=== PATIENT | male | born 1980 | race Caucasian/White ===

== ENCOUNTER 2017-12-24 10:14 | Emergency (ER) | payer MEDICAID ==
[2017-12-24 10:27] VITALS: BMI 27.2
[2017-12-24 10:33] VITALS: RESP 18; TEMP 98.6
--- NOTE | 2017-12-24 11:07 | ED PDOC ---
Arrival/HPI - General Chief Complaint: Headache Time Seen by Provider: 12/24/17 10:43 Historian: Patient EM Caveat: Unstable Vital Signs - History of Present Illness Narrative History of Present Illness (Text): 12/24/17 11:02 Pt is a 37 year old male who presents to the ED complaining of a severe headache for the past 1 year. Pt describes the pain as starting at the top of his head and referring down the neck to both shoulders, down spine to the hips and then knees. States he has insomnia for which he takes Tylenol pm but does not help. Reports having a lot of stress, , job, etc. Pt points out that hes had a small lump on the top of his scalp that has been growing slowly over the last year. Denies sob, cp, fevers, chills, change in vision, eye pain, smell or hearing or any other complaint at this time. Pt has neurology appointment January 08. 12/24/17 11:08 Time/Duration: > month (over 1 yr) Symptom Course: Unchanged Quality: Aching, Pressure Severity Level: Moderate Activities at Onset: Rest, Sleeping Context: Home Past Medical History - Provider Review Nursing Documentation Reviewed: Yes - Travel History Have you recently traveled outside [place] w/in the past 3 mons?: No - Infectious Disease Hx of Infectious Diseases: None - Tetanus Immunization Tetanus Immunization: Unknown - Past Medical History Past Medical History: No Previous - Psychiatric Hx Psychophysiologic Disorder: No Hx Substance Use: No (pt denies) - Past Surgical History Past Surgical History: No Previous - Anesthesia Hx Anesthesia: No Hx Anesthesia Reactions: No Hx Malignant Hyperthermia: No - Suicidal Assessment Feels Threatened In Home Enviroment: No Family/Social History - Physician Review Nursing Documentation Reviewed: Yes Family/Social History: Unknown Family HX Smoking Status: Never Smoked Hx Alcohol Use: Yes Hx Substance Use: No (pt denies) Hx Substance Use Treatment: No Allergies/Home Meds Allergies/Adverse Reactions: Allergies Penicillins Allergy (Verified 05/31/16 10:34) RASH Review of Systems - Review of Systems Constitutional: Fatigue Eyes: Normal ENT: Normal Respiratory: Normal Cardiovascular: Normal Gastrointestinal: Normal Genitourinary Male: Normal Musculoskeletal: Normal Skin: Normal Neurological: Normal Endocrine: Normal Hemo/Lymphatic: Normal Psychiatric: Normal Physical Exam Vital Signs Reviewed: Yes Vital Signs Temp Pulse Resp BP Pulse Ox 12/24/17 13:32 81 18 139/76 97 12/24/17 10:27 98.6 F 100 H 18 126/73 99 Temperature: Afebrile Blood Pressure: Normal Pulse: Tachycardic Respiratory Rate: Normal Appearance: Positive for: Well-Appearing, Non-Toxic, Comfortable Pain Distress: Severe Mental Status: Positive for: Alert and Oriented X 3 - Systems Exam Head: Present: Atraumatic, Normocephalic, Tenderness (raised lesion on vertex, ) Pupils: Present: PERRL Extroacular Muscles: Present: EOMI Conjunctiva: Present: Normal Mouth: Present: Moist Mucous Membranes Neck: Present: Normal Range of Motion Respiratory/Chest: Present: Clear to Auscultation, Good Air Exchange. No: Respiratory Distress, Accessory Muscle Use Cardiovascular: Present: Regular Rate and Rhythm, Normal S1, S2. No: Murmurs Abdomen: Present: Normal Bowel Sounds. No: Tenderness, Distention, Peritoneal Signs Back: Present: Normal Inspection Upper Extremity: Present: Normal Inspection. No: Cyanosis, Edema Lower Extremity: Present: Normal Inspection. No: Edema Neurological: Present: GCS=15, CN II-XII Intact, Speech Normal Skin: Present: Warm, Dry, Normal Color. No: Rashes Psychiatric: Present: Alert, Oriented x 3, Normal Insight, Normal Concentration Medical Decision Making ED Course and Treatment: 12/24/17 11:07 Impression Pt is a 37 year old male who presents to the ED complaining of a severe headache for the past 1 year. On exam, small raised lesion vertex of scalp, point tenderness, cervical, thoracic and lumbar paraspinal pain, Pos Spurlings, active TrPs with referral pattern Working Dx: Myofascial pain syndrome Plan Head CT w/o contrast assess and dispo 12/24/17 12:[address] unremarkable Toradol given for pain discussed findings with pt and recommended f/u with neurologist or apprentice painter brush and PT Dispo home on naprosyn and cyclobenzaprine 12/24/17 13:03 - RAD Interpretation Narrative RAD Interpretations (Text): 12/24/17 12:31 PROCEDURE: CT HEAD WITHOUT CONTRAST. HISTORY: Headache COMPARISON: 05/31/2016. TECHNIQUE: Axial computed tomography images were obtained through the head/brain without intravenous contrast. Radiation dose: Total exam DLP = 863.45 mGy-cm. This CT exam was performed using one or more of the following dose reduction techniques: Automated exposure control, adjustment of the mA and/or kV according to patient size, and/or use of iterative reconstruction technique. FINDINGS: HEMORRHAGE: No intracranial hemorrhage. BRAIN: Francis-white matter differentiation is preserved. There is no mass, mass effect or abnormal extra-axial fluid collection. There is no territorial infarction. VENTRICLES: The ventricles are normal in size, shape and configuration. CALVARIUM: The skull base and calvarium are normal. PARANASAL SINUSES: Predominantly clear. MASTOID AIR CELLS: Predominantly clear. OTHER FINDINGS: None. IMPRESSION: No acute intracranial abnormality. Radiology Orders: 12/24/17 10:53 HEAD W/O CONTRAST [CT] Stat Slope Hoist Operator: Radiologist - Medication Orders Current Medication Orders: Discontinued Medications Ketorolac Tromethamine (Toradol) 30 mg IM STAT STA Stop: 12/24/17 12:32 Last Admin: 12/24/17 12:59 Dose: 30 mg MAR Pain Assessment Document 12/24/17 12:59 HI (Rec: 12/24/17 13:00 CT [id number]) Pain Reassessment Is this a pain reassessment? No Sleep Is patient sleeping during reassessment? 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 Ulcer: No History Surgical Site Infection Following: None - Disposition Have Diagnosis and Disposition been Completed?: Yes Diagnosis: Headache, Myofascial pain syndrome Disposition: HOME/ ROUTINE Disposition Time: 13:07 Patient Plan: Discharge Condition: GOOD Discharge Instructions (ExitCare): Tension Headache (DC), Fibromyalgia (DC) Additional Instructions: Dear Nato, We have assessed you for a severe, chronic headache that does not respond to over the counter medication. Please follow up with your neurology appointment to ascertain why you have had this headache for so long. If you return home and feel that your symptoms are getting worse, return to the ER immediately All the best, SAMM Qureshi Prescriptions: Cyclobenzaprine [Flexeril] 10 mg PO Q8 #15 tab Naproxen [Naprosyn] 500 mg PO BID 5 Days #20 tablet Forms: [employer] (Citizen [place])
--- NOTE | 2017-12-24 12:19 | CT ---
PROCEDURE: CT HEAD WITHOUT CONTRAST. HISTORY: Headache COMPARISON: 05/31/2016. TECHNIQUE: Axial computed tomography images were obtained through the head/brain without intravenous contrast. Radiation dose: Total exam DLP = 863.45 mGy-cm. This CT exam was performed using one or more of the following dose reduction techniques: Automated exposure control, adjustment of the mA and/or kV according to patient size, and/or use of iterative reconstruction technique. FINDINGS: HEMORRHAGE: No intracranial hemorrhage. BRAIN: Francis-white matter differentiation is preserved. There is no mass, mass effect or abnormal extra-axial fluid collection. There is no territorial infarction. VENTRICLES: The ventricles are normal in size, shape and configuration. CALVARIUM: The skull base and calvarium are normal. PARANASAL SINUSES: Predominantly clear. MASTOID AIR CELLS: Predominantly clear. OTHER FINDINGS: None. IMPRESSION: No acute intracranial abnormality.
[2017-12-24 13:34] VITALS: BP 139/76; PULSE 81; O2SAT 97
== END 2017-12-24 13:32 | disposition home or self-care (01) ==
LOC: ED 10:14
DX: R51 Headache (principal); M79.1 Myalgia
CPT/HCPCS: 70450; 96372; 99285; J1885